=== PATIENT | female | born 1975 | race Caucasian/White ===

== ENCOUNTER 2018-04-28 11:44 | Outpatient (CLI) | payer BC | END 2018-04-28 11:45 | disposition home or self-care (01) | LOC: BICMAMMO 11:44 | PROVIDERS: ATTEND Student in an Organized Health Care Education/Training Program | DX: Z12.31 Encounter for screening mammogram for malignant neoplasm of breast (principal) | CPT/HCPCS: 77063; 77067 ==

== ENCOUNTER 2019-06-15 08:11 | Outpatient (CLI) | payer BC ==
--- NOTE | 2019-06-15 09:49 | MRI ---
CERVICAL SPINE MRI WITHOUT CONTRAST: DATE: 06/15/2019. COMPARISON: None. HISTORY: Cervical radiculopathy. TECHNIQUE: Multiplanar multisequence MR imaging of the cervical spine obtained without contrast. FINDINGS: The sagittal STIR imaging demonstrates no focal area of osseous marrow edema. There is straightening of the normal cervical lordosis. No prevertebral soft tissue swelling is noted . C2-3: No significant central canal or neural foraminal stenosis. C3-4: No significant central canal or neural foraminal stenosis. C4-5: Disc space narrowing and disc desiccation noted. There is a central/left paracentral annular te ar with an associated small disc protrusion effacing the ventral thecal sac and causing a mild degree of central canal stenosis. No significant neural foraminal stenosis. C5-6: Bilateral facet and uncovertebral osteophyte formation, left greater than right. Disc space onel rowing and disc desiccation present. Partial effacement of the ventral thecal sac. Mild central canal stenosis. Mild right and moderate left neural foraminal stenosis. C6-7: There is disc space narrowing, disc desiccation, and disc bulge with an extensive posterior kwabena ular tear. There is partial effacement of the ventral thecal sac with a mild degree of central canal stenosis. No significant neural foraminal stenosis. C7-T1: No significant central canal or neural foraminal stenosis. There is no focal area of abnormal signal intensity identified within the cervical cord. IMPRESSION: Multilevel cervical spine degenerative change as detailed above. Transcribed Date/Time: 06/15/2019 10:04 AM
== END 2019-06-15 08:12 | disposition home or self-care (01) ==
LOC: SCSMRI 08:11
PROVIDERS: ATTEND Specialist
DX: M47.22 Other spondylosis with radiculopathy, cervical region (principal)
CPT/HCPCS: 72141

== ENCOUNTER 2019-07-19 07:49 | Outpatient (CLI) | payer BC ==
--- NOTE | 2019-07-19 09:41 | MRI ---
MRI BRACHIAL PLEXUS WITH AND WITHOUT CONTRAST: CLINICAL HISTORY: Cervical pain. FINDINGS: No evidence of space occupying mass or pathologic enhancement is identified along the course of the l eft brachial plexus. Incidental note of degenerative change as depicted on 06/15/2019 cervical spine MRI. No abnormal left neural foraminal expansion of the imaged cervical and upper thoracic spin e. IMPRESSION: No acute pathology of the left brachial plexus is identified. Transcribed Date/Time: 07/19/2019 9:44 AM
--- NOTE | 2019-07-19 11:26 | RAD ---
CERVICAL SPINE FOUR VIEWS: HISTORY: Neck pain. FINDINGS: There is straightening of the normal lordotic curvature. Moderate degenerative changes are noted. Los s of disk space is prominent at C5-C6 and C6-C7. Anterior osteophytes at these levels with mild poste rior spondylosis. Slight anterolisthesis at C3-C4. No significant change in alignment with flexion an d extension. IMPRESSION: Mild degenerative changes as described. POS: [facility]
== END 2019-07-19 07:50 | disposition home or self-care (01) ==
LOC: BICMRI 07:49
PROVIDERS: ATTEND Surgery
DX: M50.20 Other cervical disc displacement, unspecified cervical region (principal); M79.602 Pain in left arm; M47.812 Spondylosis without myelopathy or radiculopathy, cervical region; M43.12 Spondylolisthesis, cervical region; M25.78 Osteophyte, vertebrae
CPT/HCPCS: 36415; 72050; 72156; 80053; 80061; 85025

== ENCOUNTER 2019-09-07 11:55 | Day surgery (SDC) | payer BC ==
[2019-09-06 11:35] VITALS: BMI 27.3
[2019-09-07] MEDS ORDERED: PROPOFOL 200 MG/20 ML VIAL ONE (12:50)
[2019-09-07] MEDS ORDERED: Lidocaine 1% PF 5 ML VIAL ONE (12:50)
--- NOTE | 2019-09-07 15:27 | OP ---
DATE OF PROCEDURE: 09/07/2019 PROCEDURE PERFORMED: Colonoscopy with biopsy. PREPROCEDURE DIAGNOSES: 1. Hematochezia. 2. Chronic constipation. POSTPROCEDURE DIAGNOSES: 1. Exam to cecum; good bowel preparation. 2. Diffusely redundant colon, mild severity. 3. 3 to 4 cm distal rectal mass located at the anal verge extending proximally to the [id number] rectum, biopsied. 4. No other polyps or synchronous masses identified. 5. Retroflexed exam not performed due to the presence of the rectal mass. DESCRIPTION OF PROCEDURE: Written informed consent was obtained. The patient was brought to the endoscopy suite. Total intravenous anesthesia was administered by Dr. Ridge Oliva. The patient was placed in the left lateral decubitus position. A digital rectal exam was performed which revealed the tender rectal mass. A Pentax video colonoscope was inserted through the anal canal and advanced under direct visualization to the cecum. Position in the cecum was verified by clear identification of the appendiceal orifice and the ileocecal valve. The quality of the bowel preparation was good. Each colon segment was examined carefully as the colonoscope was slowly withdrawn from the cecum. No polyp or diverticulum was identified. There was mild redundancy to the entire colon. In the rectum, approximately 4 cm from the anal verge, an exophytic friable ulcerated mass occupying about 50% of the luminal circumference was identified in the distal rectum. Multiple biopsies were obtained for histology. Due to the presence of the mass, a good retroflexed exam could not be performed. The colon was decompressed as the colonoscope was completely removed from the patient. She was transferred to the Day Stay surgery area for postprocedure monitoring. There were no immediate complications. RECOMMENDATIONS: 1. Await pathology results. 2. Ask the patient to call me in 1 week for pathology results. 3. Obtain CBC, CMP, and CEA today. 4. Obtain CT scan of the abdomen and pelvis. 5. Obtain rectal endoscopic ultrasound, to be scheduled at a later date. 6. Referral to Oncology. 7. Follow up with me in 1 month. Job ID: [id number]
[2019-09-07 15:58] LABS: ALT (SGPT) 10 U/L (8-55); AST (SGOT) 13 U/L (5-34); Albumin 3.9 g/dL (3.5-5.0); Alkaline Phosphatase 78 U/L (40-110); Anion Gap 14 mmol/L (10-20); BUN (Urea Nitrogen) 9 mg/dL (7.0-18.7); Bilirubin, Total 0.6 mg/dL (0.2-1.2); Calc. Creatinine Clearance 118 mL/min (70-130); Calcium 8.9 mg/dL (7.8-10.44); Carbon Dioxide 20 mmol/L (22-29); Chloride 106 mmol/L (98-107); Estimated GFR-MDRD 83; Globulin 2.4 g/dL (2.4-3.5); Glucose 85 mg/dL (70-105); Potassium 3.7 mmol/L (3.5-5.1); Protein, Total 6.3 g/dL (6.0-8.3); Sodium 136 mmol/L (136-145)
== END 2019-09-07 15:50 | disposition home or self-care (01) ==
LOC: SDC 11:55
PROVIDERS: ATTEND Internal Medicine Gastroenterology
PROC: 0DBP8ZX Excision of Rectum, Via Natural or Artificial Opening Endoscopic, Diagnostic (ICD-10-PCS; principal; 2019-09-07)
DX: C20 Malignant neoplasm of rectum (principal); K59.09 Other constipation
CPT/HCPCS: 36415; 80053; 82378; 88305; J2001; J2704

== ENCOUNTER 2019-09-12 07:21 | Outpatient (CLI) | payer BC ==
--- NOTE | 2019-09-12 10:48 | CT ---
CT ABDOMEN AND PELVIS WITH ORAL AND IV CONTRAST: HISTORY: Squamous cell carcinoma of the anal canal. FINDINGS: There are mild dependent changes in the lung bases. The liver, spleen, pancreas, adrenal glands and k idneys are normal. No calcified gallstones are noted. No free air or free fluid is seen in the abdome n or pelvis. There are enlarged right perirectal lymph nodes, measuring up to 2 cm. No osteolytic or osteoblastic lesions are seen. A small hiatal hernia is present. There are vascular calcifications without evidence of dilatation of the abdominal aorta. There is thickening of the wall of the rectum. IMPRESSION: Rectal wall thickening and right perirectal lymphadenopathy. POS: [facility]
[2019-09-12] MEDS ORDERED: Iopamidol 370 76% 50 ML VIAL FS ONE (13:34)
== END 2019-09-12 07:22 | disposition home or self-care (01) ==
LOC: CT 07:21
PROVIDERS: ATTEND Internal Medicine Gastroenterology
DX: C21.0 Malignant neoplasm of anus, unspecified (principal); K62.89 Other specified diseases of anus and rectum; R59.0 Localized enlarged lymph nodes
CPT/HCPCS: 74177; Q9967

== ENCOUNTER 2019-09-21 10:46 | Outpatient (CLI) | payer BC ==
--- NOTE | 2019-09-21 13:29 | PET ---
PET CT SKULL TO MID THIGH: COMPARISON: CT 09/12/2019. HISTORY: Anal cancer. TECHNIQUE: A PET/CT was performed from the skull to the mid thigh after administration of 12.5 millicuries of F- 18 FDG. Evaluation was performed on a [employer] workstation. FINDINGS: NECK: No areas of hypermetabolic activity. CHEST: No areas of hypermetabolic activity. ABDOMEN/PELVIS: Previously noted perirectal lymph nodes of the right hemipelvis are hypermetabolic, with SUV up to 9. 8, and measure up to approximately 2 cm in diameter. There is also abnormal hypermetabolic activity near the anorectal verge, with SUV maximum greater than 11. SKELETON: No areas of hypermetabolic activity. CT images used for attenuation correction show no significant abnormality. IMPRESSION: Evidence of malignancy involving the region of anorectal verge, in keeping with history of anal cance r, as well as adjacent metastatic, hypermetabolic adenopathy of the pelvis. Transcribed Date/Time: 09/21/2019 1:41 PM
== END 2019-09-21 10:47 | disposition home or self-care (01) ==
LOC: PET 10:46
PROVIDERS: ATTEND Radiology Radiation Oncology
DX: C21.0 Malignant neoplasm of anus, unspecified (principal); C21.8 Malignant neoplasm of overlapping sites of rectum, anus and anal canal
CPT/HCPCS: 78815; 80053; 82248; 83615; 84100; 84550; A9552

== ENCOUNTER 2019-09-25 07:02 | Day surgery (SDC) | payer BC ==
[2019-09-22 10:40] VITALS: BMI 28.1
[2019-09-25] MEDS ORDERED: Bupivacaine 0.25% HCL 30 ML VIAL ONE (07:55)
[2019-09-25] MEDS ORDERED: Lidocaine 1% w/Epinephrine 1:100K 20 ML VIAL ONE (07:55)
[2019-09-25 08:14] LABS: Anion Gap 11 mmol/L (10-20); BUN (Urea Nitrogen) 12 mg/dL (7.0-18.7); Calc. Creatinine Clearance 111 mL/min (70-130); Carbon Dioxide 26 mmol/L (22-29); Chloride 106 mmol/L (98-107); Estimated GFR-MDRD 75; Glucose 84 mg/dL (70-105); Potassium 4.2 mmol/L (3.5-5.1); Sodium 139 mmol/L (136-145)
[2019-09-25] MEDS ORDERED: Lidocaine 2% Jelly 5 ML TUBE ONE (09:01)
[2019-09-25] MEDS ORDERED: Fentanyl 100 MCG/2 ML VIAL ONE (09:01)
[2019-09-25] MEDS ORDERED: Propofol 500 MG/50 ML VIAL ONE (09:02)
--- NOTE | 2019-09-25 10:31 | RAD ---
EXAM: Single view of the chest HISTORY: Mediport placement COMPARISON: None FINDINGS: Single view of the chest shows a normal sized cardiomediastinal silhouette. There is a rig ht IJ Mediport with its tip in the superior vena cava. No pneumothorax is seen. There is no evidence of consolidation, mass, or pleural effusion. The bones are unremarkable. IMPRESSION: Status post Mediport placement without evidence of complication.
[2019-09-25] MEDS ORDERED: Ondansetron ODT 4 MG TAB ONE (11:05)
--- NOTE | 2019-09-25 12:14 | OP ---
DATE OF PROCEDURE: 09/25/2019 PREOPERATIVE DIAGNOSIS: Anal squamous cell carcinoma. POSTOPERATIVE DIAGNOSIS: Anal squamous cell carcinoma. PROCEDURE PERFORMED: Tunneled central line subcutaneous port (MediPort CT injectable). ANESTHESIA: General. ESTIMATED BLOOD LOSS: Minimal. COMPLICATIONS: None. SPECIMEN: None. FINDINGS: Tip of the catheter was at atriocaval junction. DESCRIPTION OF PROCEDURE: The patient was taken to the operating room and laid supine on the operating room table. After general anesthetic was obtained, bilateral chest and neck was prepped and draped in a sterile fashion. Local anesthetic infiltrated over the left internal jugular vein. Internal jugular vein was cannulated using a 22-gauge finder needle followed by a Seldinger needle. Wire was passed into the superior vena cava under fluoro guidance. A small maryse was made at the wire entrance site. A separate 4 cm incision was made in the right upper chest. Subcutaneous pocket was made below the lower incision, tubing for the MediPort tunneled from the inferior to superior incision. Introducer sheath was placed over the wire into the superior vena cava under fluoro guidance. The dilator and wire were removed. The end of the catheter was sewed into the sheath. The sheath was peeled away. The tip of the catheter was at the atriocaval junction. MediPort tubing cut to fit the MediPort at the lower incision, connected to the MediPort, which was sewn to the chest wall in the subcutaneous pocket using Prolene. MediPort was flushed and corinna blood without difficulty. It was flushed with a heparin flush. The wounds were all irrigated and closed using 3-0 Vicryl and 4-0 Monocryl, and Dermabond. Patient was sent to Recovery in stable condition. All sponge counts, needle counts, lap counts were correct. Job ID: [id number]
== END 2019-09-25 11:15 | disposition home or self-care (01) ==
LOC: SDC 07:02
PROVIDERS: ATTEND Surgery
PROC: 02HV33Z Insertion of Infusion Device into Superior Vena Cava, Percutaneous Approach (ICD-10-PCS; principal; 2019-09-25)
DX: C21.0 Malignant neoplasm of anus, unspecified (principal)
CPT/HCPCS: 36415; 71045; 80048; J0690; J1642; J2704; J3010; Q0162; S0020

== ENCOUNTER 2019-10-10 20:24 | Emergency (ER) | payer BC | END 2019-10-10 21:32 | disposition left against medical advice (07) | LOC: ERS 20:24 | DX: Z53.21 Procedure and treatment not carried out due to patient leaving prior to being seen by health care provider (principal) ==

== ENCOUNTER 2019-10-11 13:10 | Emergency (ER) | payer BC ==
[2019-10-11 14:25] LABS: #Basophils 0.1 thou/uL (0.0-0.2); #Lymphocytes 0.1 thou/uL (1.20-3.40); #Monocytes 0.1 thou/uL (0.11-0.59); %Basophils 1.9 % (0.0-1.0); %Eosinophils 0.4 % (0.0-10.0); %Lymphocytes 2.9 % (21.0-51.0); %Monocytes 3.1 % (0.0-10.0); %Neutrophils 91.7 % (42.0-75.0); Hemoglobin 12.4 g/dL (12.0-16.0); Mean Corpuscular HGB CONC 34.7 g/dL (32.0-36.0); Mean Corpuscular Hemoglobin 31.5 pg (27.0-31.0); Mean Corpuscular Volume 90.6 fL (78.0-98.0); Mean Platelet Volume 8.7 fL (7.4-10.4); Platelet Count 186 thou/uL (130-400); RBC Distribution Width 11.3 % (11.5-14.5); Red Blood Cell (RBC) Count 3.93 mill/uL (4.20-5.40); White Blood Cell (WBC) Count 4.4 thou/uL (4.8-10.8)
[2019-10-11 14:31] LABS: PTT 25.7 SEC (22.9-36.1); Prothrombin Time 13.3 SEC (12.0-14.7)
[2019-10-11 14:47] LABS: ALT (SGPT) 9 U/L (8-55); AST (SGOT) 7 U/L (5-34); Albumin 3.8 g/dL (3.5-5.0); Alkaline Phosphatase 55 U/L (40-110); Anion Gap 14 mmol/L (10-20); BUN (Urea Nitrogen) 15 mg/dL (7.0-18.7); Bilirubin, Total 0.4 mg/dL (0.2-1.2); Calc. Creatinine Clearance 0 mL/min (70-130); Calcium 8.4 mg/dL (7.8-10.44); Carbon Dioxide 19 mmol/L (22-29); Chloride 103 mmol/L (98-107); Estimated GFR-MDRD 77; Globulin 2.4 g/dL (2.4-3.5); Glucose 202 mg/dL (70-105); Potassium 3.6 mmol/L (3.5-5.1); Protein, Total 6.2 g/dL (6.0-8.3); Sodium 132 mmol/L (136-145)
[2019-10-11 14:58] LABS: Bilirubin Negative (Negative); Blood, Urine Negative (Negative); Clarity Clear (Clear); Glucose, Urine (Dipstick) Greater than 1000 mg/dL (Negative); Leukocyte Negative Leu/uL (Negative); Nitrite Negative (Negative); Protein, Urine (Dipstick) 10 mg/dL (Neg-Trace); Urobilinogen Normal mg/dL (Less than 2)
--- NOTE | 2019-10-11 17:05 | ULT ---
Venous duplex sonogram right upper extremity HISTORY: Right arm pain and edema. FINDINGS: Thrombus is evident within the right internal jugular vein. No flow visible. Good color and spectral Doppler flow within the subclavian vein, axillary, brachial, basilic, and cephalic veins. 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
== END 2019-10-11 18:07 | disposition home or self-care (01) ==
LOC: ERS 13:10
DX: I82.C11 Acute embolism and thrombosis of right internal jugular vein (principal); Z79.899 Other long term (current) drug therapy
CPT/HCPCS: 36415; 80053; 81003; 85025; 85610; 85730

== ENCOUNTER 2019-12-26 19:11 | Emergency (ER) | payer BC ==
[~2019-12-26 19:11] MED LIST: Iopamidol-370 76% 500 ML 1 ML ONE
[2019-12-26] MEDS ORDERED: Mag-Al 1200 mg/1200 mg/30 ML UDCUP ONE (19:26)
[2019-12-26] MEDS ORDERED: Lidocaine Viscous Sol 2% 15 ml UD Cup ONE (19:26)
[2019-12-26 19:57] LABS: #Eosinphils 0.3 thou/uL (0.0-0.7); #Lymphocytes 0.7 thou/uL (1.20-3.40); #Monocytes 0.6 thou/uL (0.11-0.59); #Neutrophils 3.3 thou/uL (1.40-6.50); %Basophils 0.7 % (0.0-1.0); %Eosinophils 6.4 % (0.0-10.0); %Lymphocytes 13.7 % (21.0-51.0); %Monocytes 11.4 % (0.0-10.0); %Neutrophils 67.8 % (42.0-75.0); Hemoglobin 11.1 g/dL (12.0-16.0); Mean Corpuscular HGB CONC 35.5 g/dL (32.0-36.0); Mean Corpuscular Volume 95.8 fL (78.0-98.0); Mean Platelet Volume 7.7 fL (7.4-10.4); Platelet Count 209 thou/uL (130-400); RBC Distribution Width 14.4 % (11.5-14.5); Red Blood Cell (RBC) Count 3.27 mill/uL (4.20-5.40); White Blood Cell (WBC) Count 4.8 thou/uL (4.8-10.8)
[2019-12-26 20:18] LABS: Bacteria/HPF None Seen HPF (None Seen); Bilirubin Negative (Negative); Blood, Urine Negative (Negative); Clarity Clear (Clear); Glucose, Urine (Dipstick) Normal (Negative); Leukocyte 75 Leu/uL (Negative); Nitrite Negative (Negative); Protein, Urine (Dipstick) Negative (Neg-Trace); RBC/HPF 0-3 HPF (0-3); Squamous Epithelial 0-3 HPF (0-3); Urobilinogen Normal mg/dL (Less than 2)
[2019-12-26 20:28] LABS: ALT (SGPT) 34 U/L (8-55); AST (SGOT) 34 U/L (5-34); Albumin 3.9 g/dL (3.5-5.0); Alkaline Phosphatase 89 U/L (40-110); Anion Gap 15 mmol/L (10-20); BUN (Urea Nitrogen) 12 mg/dL (7.0-18.7); Bilirubin, Total 0.3 mg/dL (0.2-1.2); Calc. Creatinine Clearance 0 mL/min (70-130); Carbon Dioxide 23 mmol/L (22-29); Chloride 106 mmol/L (98-107); Estimated GFR-MDRD 73; Globulin 2.2 g/dL (2.4-3.5); Glucose 99 mg/dL (70-105); Lipase 29 U/L (8-78); Potassium 3.8 mmol/L (3.5-5.1); Protein, Total 6.1 g/dL (6.0-8.3); Sodium 140 mmol/L (136-145)
[2019-12-26] MEDS ORDERED: Morphine 4 MG/ML VIAL ONE (20:47)
[2019-12-26] MEDS ORDERED: Ondansetron PF 4 MG/2 ML Vial ONE (20:47)
[2019-12-26 21:14] LABS: BHCG - Serum Negative (NEGATIVE); Pregs Control Background? CLEAR/WHITE (CLR/WHITE); Pregs Control Bar Appear? YES (CONTROL BAR)
--- NOTE | 2019-12-26 21:42 | CT ---
CT ABDOMEN WITH CONTRAST CT PELVIS WITH CONTRAST: DATE: 12/26/2019 HISTORY: 44-year-old female with epigastric abdominal pain. History of anal cancer: Squamous cell carcinoma in remission after last chemotherapy and radiation therapy one month ago COMPARISON: 09/12/2019 TECHNIQUE: IV injection of iodinated contrast media: administered. Oral contrast media:Not administered FINDINGS: At the base of the right middle lobe, abutting the right cardiac border and the right anterior old me dial pleural surface, there is an approximately 4 x 3.5 cm lesion with density of 18 Hounsfield units. The craniocaudal dimension is unknown because only the most inferior portion of this mass was included on the images. This mass was previously approximately 3 x 2.5 cm. No pleural effusion. No moderate sized or large hiatal hernia. No gastric distention. Liver, kidneys, abdominal aorta, adrenals, pancreas, spleen, appendix, and urinary bladder, are quyen l. No colonic diverticulitis, small bowel dilation, or pneumoperitoneum. No mesenteric, minerva hepatis, o r retroperitoneal, lymphadenopathy. No signs of acute cholecystitis. Previously, there were pathologically enlarged right perirectal lymph nodes (which were FDG avid on s ubsequent PET scan). Those lymph nodes are no longer visualized, and have been replaced with either a small amount of bilateral perirectal fluid in the ischio rectal fossa, right greater than left, or scar tissue. No osteoblastic or osteolytic lesions. The previously demonstrated diffuse soft tissue thickening of the perineum, including anorectal verge, has improved. IMPRESSION: 1. Post radiation changes in the perirectal, ischio rectal fossa region, especially on the right, wit h interval resolution of the right perirectal metastatic lymph nodes. 2. Slightly high density cystic mass in the right middle lobe of the chest, (probably arising from th e paracardial fat pad rather than arising from the lung) has grown. It is incompletely imaged, and its etiology is uncertain. Recommend CT of the chest with contrast on a nonemergent basis. 3. No acute findings within the upper abdominal cavity.
== END 2019-12-26 21:59 | disposition home or self-care (01) ==
LOC: ERS 19:11
DX: R10.12 Left upper quadrant pain (principal); Z79.01 Long term (current) use of anticoagulants; Z85.048 Personal history of other malignant neoplasm of rectum, rectosigmoid junction, and anus
CPT/HCPCS: 36415; 74177; 80053; 81003; 81015; 83690; 84484; 84703; 85025; 93005; 96374; 96375; J2270; J2405

== ENCOUNTER 2020-01-02 09:54 | Outpatient (CLI) | payer BC ==
--- NOTE | 2020-01-02 12:05 | PET ---
Radionucleotide PET scan with CT attenuation correction HISTORY: Malignant neoplasm of anal canal. Restaging. COMPARISON: 09/12/2019. FINDINGS: Physiologic uptake of radiotracer throughout the enteric system and along each urinary trac t. At the lower posterior pelvis rectum/anus, no hypermetabolic activity is apparent on the current study. No new areas of abnormal activity evident. The nondiagnostic CT attenuation correction images show no enlarged lymph nodes remaining (as describ ed on the CT 12/26/2019). The non-hypermetabolic cystic lesion adjacent to the right cardiac margin at the anterior cardiophren ic angle remains homogeneous fluid density. On today's exam axial images, it is 3.7 cm x 3.1 cm greatest diameters (4.3 cm x 4.2 cm on the 12/26/2019 study; 2.9 cm x 2.5 cm PET/CT 09/12/2019). Since it is smaller than on the prior study, it is certainly not a neoplastic process. Cause for fluctuation in size is not uncertain. IMPRESSION : Complete interval resolution of hypermetabolic activity associated with the rectum/anus. Resolution o f activity and visualization of the right perirectal nodes. No new abnormalities are demonstrated.
== END 2020-01-02 09:55 | disposition home or self-care (01) ==
LOC: PET 09:54
PROVIDERS: ATTEND Internal Medicine Hematology & Oncology
DX: C21.1 Malignant neoplasm of anal canal (principal)
CPT/HCPCS: 78815; A9552

== ENCOUNTER 2020-03-18 05:51 | Outpatient (CLI) | payer BC, OTHER ==
[2020-03-19 13:46] LABS: SARS-CoV-2 MS2 Positive; SARS-CoV-2 N Gene Negative; SARS-CoV-2 S Gene Negative; SARS-CoV-2 orf1ab Negative
== END 2020-03-18 05:52 | disposition home or self-care (01) ==
LOC: LABBT 05:51
PROVIDERS: ATTEND Internal Medicine Gastroenterology
DX: Z01.812 Encounter for preprocedural laboratory examination (principal); Z11.59 Encounter for screening for other viral diseases; C21.8 Malignant neoplasm of overlapping sites of rectum, anus and anal canal
CPT/HCPCS: 87635; U0003

== ENCOUNTER 2020-03-21 10:21 | Day surgery (SDC) | payer BC ==
[2020-03-15 10:33] VITALS: BMI 28.1
[~2020-03-21 10:21] MED LIST changes: -Iopamidol-370 76% 500 ML 1 ML ONE; +Lidocaine 1% PF 5 ML VIAL ONE; +PROPOFOL 200 MG/20 ML VIAL ONE
[2020-03-21] MEDS ORDERED: Fleet Enema 133 ML BOT FS SCH (11:45)
--- NOTE | 2020-03-21 18:56 | OP ---
DATE OF PROCEDURE: 03/21/2020 PROCEDURE PERFORMED: Flexible sigmoidoscopy. 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 POSTPROCEDURE DIAGNOSES: 1. Exam to proximal sigmoid colon at 40 cm. 2. Moderate mucosal edema involving the distal sigmoid colon and rectum consistent with the patient's previous history of radiation therapy. 3. Attenuated vascular pattern in the rectum. 4. No evidence of ulcer, polyp, or recurrence of anal mass. 5. Retroflexed exam demonstrated small anal papilla. 6. Otherwise normal sigmoidoscopy. PROCEDURE IN DETAIL: Written informed consent was obtained. The patient was brought to the endoscopy suite. Total intravenous anesthesia was administered by [facility]. The patient was placed in the left lateral decubitus position. A digital rectal exam was performed that was unremarkable. A Pentax video colonoscope was inserted through the anal canal and advanced under direct visualization to the proximal sigmoid colon at 40 cm. Quality of the bowel preparation was adequate. The colon was carefully examined as the sigmoidoscope was withdrawn. Moderate circumferential mucosal edema was noted in the distal sigmoid and rectum. The vascular pattern of the rectum was attenuated, consistent with the patient's recent history of chemoradiation. The mucosa was friable, but no ulcers were identified. There was no evidence of polyp on the exam. A retroflexed exam in the rectum demonstrated a few hypertrophied anal papilla, but was otherwise unremarkable. No anal mass was seen. The colon and rectum were decompressed as the colonoscope was completely removed from the patient. She was transferred to the Day Stay surgery area for postprocedure monitoring. There were no immediate complications. RECOMMENDATIONS: 1. Resume previous diet and medications. 2. Continue regular followup with Oncology. 3. Repeat sigmoidoscopy in 1 year or as guided by recommendations from Dr. Faith. Job ID: [id number]
== END 2020-03-21 13:45 | disposition home or self-care (01) ==
LOC: SDC 10:21
PROVIDERS: ATTEND Internal Medicine Gastroenterology
PROC: 0DJD8ZZ Inspection of Lower Intestinal Tract, Via Natural or Artificial Opening Endoscopic (ICD-10-PCS; principal; 2020-03-21)
DX: C21.8 Malignant neoplasm of overlapping sites of rectum, anus and anal canal (principal); K62.89 Other specified diseases of anus and rectum; R60.0 Localized edema; Z79.899 Other long term (current) drug therapy
CPT/HCPCS: J2001; J2704

== ENCOUNTER 2020-05-28 14:30 | Outpatient (CLI) | payer BC ==
--- NOTE | 2020-05-28 15:13 | MMO ---
Left Breast MAMMO Unilat Diag DDI LT+TINY. CLINICAL HISTORY: Patient is 44 years old and is seen for diagnostic exam. The patient has no family history of breast cancer. The patient has no personal history of cancer. The patient has a history of right Cyst Aspiration in 2007. VIEWS: The views performed were: left craniocaudal with tomosynthesis; left mediolateral oblique with tomosynthesis; and left mediolateral with tomosynthesis. FILMS COMPARED: The present examination has been compared to prior imaging studies performed at [facility] on 05/25/2020, and at [facility] on 04/28/2018, 05/22/2019 and 05/28/2020. This study has been interpreted with the assistance of computer-aided detection. MAMMOGRAM FINDINGS: The breast is extremely dense, which may lower the sensitivity of mammography. Finding 1: There is a round mass measuring 40 mm with circumscribed margins seen in the left breast. Cyst palpable finding Finding 2: There are multiple round masses of varying size with circumscribed margins seen in the left breast. There are no suspicious masses, suspicious calcifications, or new areas of architectural distortion. IMPRESSION: THERE IS NO MAMMOGRAPHIC EVIDENCE OF MALIGNANCY. A ROUTINE FOLLOW-UP MAMMOGRAM IN 1 YEAR IS RECOMMENDED. THE RESULTS OF THIS EXAM WERE SENT TO THE PATIENT. ACR BI-RADS Category 2 - Benign finding MAMMOGRAPHY NOTE: 1. A negative mammogram report should not delay a biopsy if a dominant of clinically suspicious mass is present. 2. Approximately 10% to 15% of breast cancers are not detected by mammography. 3. Adenosis and dense breasts may obscure an underlying neoplasm. Reported by: SHANTEL FONTANA MD Electonically Signed: [id number]
--- NOTE | 2020-05-28 15:40 | ULT ---
EXAM: LEFT BREAST ULTRASOUND: 05/28/20 HISTORY: Patient presents with a palpable finding in the left breast on diagnostic mammogram for further evalu ation with ultrasound. The left breast is evaluated at 3 o'clock revealing a large cyst measuring 3.2 x 3.4 x 3.6 cm corresp onding to the palpable finding. IMPRESSION: BIRADS 2: Benign Finding(s) Routine annual screening mammography (for women over age 40). Large benign cyst left breast 3 o'clock corresponding to the palpable finding and the mammographic fi nding of concern. POS: [facility]
== END 2020-05-28 14:31 | disposition home or self-care (01) ==
LOC: BICMAMMO 14:30
PROVIDERS: ATTEND Student in an Organized Health Care Education/Training Program
DX: N63.20 Unspecified lump in the left breast, unspecified quadrant (principal); N60.02 Solitary cyst of left breast
CPT/HCPCS: G0279

== ENCOUNTER 2020-05-28 21:45 | Emergency (ER) | payer BC ==
[2020-05-28] MEDS ORDERED: HYDROcodone/Acetaminophen 10/325 mg Tablet ONE (22:15)
--- NOTE | 2020-05-28 22:19 | RAD ---
Exam:3 views left ankle HISTORY: Pain. Fall. Trauma. COMPARISON: None FINDINGS: Lateral soft tissue swelling. Nondisplaced distal fibular fracture. IMPRESSION: Distal fibular fracture. Associated soft tissue swelling
== END 2020-05-28 22:35 | disposition home or self-care (01) ==
LOC: ERS 21:45
DX: S82.832A Other fracture of upper and lower end of left fibula, initial encounter for closed fracture (principal); Z79.899 Other long term (current) drug therapy; X50.0XXA Overexertion from strenuous movement or load, initial encounter

== ENCOUNTER 2020-08-08 06:49 | Outpatient (CLI) | payer BC ==
[2020-08-08 13:59] LABS: Hemoglobin 14.1 g/dL (12.0-16.0); Mean Corpuscular HGB CONC 34.3 G/DL (32.0-36.0); Mean Corpuscular Hemoglobin 31.9 PG (27.0-33.0); Platelet Count 265 10x3/uL (130-400); RBC Distribution Width 13.2 % (11.5-14.5); Red Blood Cell (RBC) Count 4.42 10x6/uL (3.90-5.20); White Blood Cell (WBC) Count 4.9 10x3/uL (4.5-11.0)
[2020-08-08 14:13] LABS: PTT 27.2 sec (22.0-33.0); Prothrombin Time 10.1 sec (9.5-12.1)
[2020-08-08 14:21] LABS: Anion Gap 15 mmol/L (10-20); BUN (Urea Nitrogen) 17 mg/dL (7.0-18.7); Calc. Creatinine Clearance 0 mL/min (70-130); Calcium 9.8 mg/dL (7.8-10.44); Carbon Dioxide 26 mmol/L (22-29); Chloride 103 mmol/L (98-107); Estimated GFR-MDRD 69; Glucose 99 mg/dL (70-105); Potassium 4.2 mmol/L (3.5-5.1); Sodium 140 mmol/L (136-145)
[2020-08-08 22:58] LABS: SARS-CoV-2 MS2 Positive; SARS-CoV-2 N Gene Negative; SARS-CoV-2 S Gene Negative; SARS-CoV-2 by NAA Not Detected (NotDetected); SARS-CoV-2 orf1ab Negative
--- NOTE | 2020-08-13 06:55 | EKG ---
Test Reason : PREOP Blood Pressure : / mmHG Vent. Rate : 091 BPM Atrial Rate : 091 BPM P-R Int : 144 ms QRS Dur : 090 ms QT Int : 380 ms P-R-T Axes : 057 093 065 degrees QTc Int : 467 ms Normal sinus rhythm Rightward axis Borderline ECG No previous ECGs available Confirmed by TIM GOTTLIEB, JULIAN ([id number]) on 08/13/2020 6:54:31 AM Referred By: Vivek RUBIN Confirmed By:JULIAN DUMONT MD
== END 2020-08-08 06:50 | disposition home or self-care (01) ==
LOC: LABBT 06:49
PROVIDERS: ATTEND Surgery
DX: Z01.818 Encounter for other preprocedural examination (principal); M50.10 Cervical disc disorder with radiculopathy, unspecified cervical region; M48.02 Spinal stenosis, cervical region; Z20.828 Contact with and (suspected) exposure to other viral communicable diseases
CPT/HCPCS: 80048; 85027; 85610; 85730; 87635; 93005; 93010; U0003

== ENCOUNTER 2020-08-13 05:48 | Day surgery (SDC) | payer BC ==
[2020-08-12 10:19] VITALS: BMI 27.3
[2020-08-13] MEDS ORDERED: Fentanyl 100 MCG/2 ML VIAL ONE ×4 (06:30→15:49)
[2020-08-13] MEDS ORDERED: Thrombin 5000 UNITS/5 ML VIAL ONE (06:31)
[2020-08-13] MEDS ORDERED: Midazolam HCl 2 mg/2 ml Vial ONE (07:27)
[2020-08-13] MEDS ORDERED: HYDROmorphone 2 MG/ML VIAL ONE ×2 (08:06→10:43)
[2020-08-13] MEDS ORDERED: SUGAMMADEX SODIUM 200 MG/2 ML VIAL ONE (09:18)
[2020-08-13] MEDS ORDERED: Dexamethasone 20 MG/5 ML VIAL ONE (09:27)
[2020-08-13] MEDS ORDERED: Ondansetron PF 4 MG/2 ML Vial ONE (09:27)
[2020-08-13] MEDS ORDERED: Lidocaine 1% PF 5 ML VIAL ONE (09:27)
[2020-08-13] MEDS ORDERED: PROPOFOL 200 MG/20 ML VIAL ONE (09:27)
[2020-08-13] MEDS ORDERED: Ketorolac Tromethamine 30 MG/ML VIAL ONE (09:27)
[2020-08-13] MEDS ORDERED: Rocuronium Bromide 10 MG/ML (10ML VIAL) ONE (09:27)
[2020-08-13] MEDS ORDERED: Ondansetron HCl/PF 4 MG/2 ML Vial IVP PRN (09:40)
[2020-08-13] MEDS ORDERED: Meperidine HCl/PF 25 MG/ML VIAL SLOW IVP PRN (09:40)
[2020-08-13] MEDS ORDERED: Promethazine HCl 25 MG/ML VIAL SLOW IVP PRN (09:40)
[2020-08-13] MEDS ORDERED: HYDROmorphone 2 MG/ML VIAL SLOW IVP PRN (09:40)
[2020-08-13] MEDS ORDERED: Milk Of Magnesia 30 ML UDCUP PO PRN (09:46)
[2020-08-13] MEDS ORDERED: traMADol HCl 50 MG TAB PO PRN (09:46)
[2020-08-13] MEDS ORDERED: Acetaminophen 325 MG TAB PO PRN (09:46)
[2020-08-13] MEDS ORDERED: Mag-Al 1200 mg/1200 mg/30 ML UDCUP PO PRN (09:46)
[2020-08-13] MEDS ORDERED: Bisacodyl 10 MG SUPP PR PRN (09:46)
[2020-08-13] MEDS ORDERED: HYDROcodone/Acetaminophen 7.5/325 mg Tablet PO PRN (09:46)
[2020-08-13] MEDS ORDERED: Acetaminophen/Codeine 30-300mg Tablet PO PRN (09:46)
[2020-08-13] MEDS ORDERED: ALPRAZolam 0.5 MG TAB PO PRN (09:47)
[2020-08-13] MEDS ORDERED: tiZANidine HCl 4 MG TAB ONE (12:21)
[2020-08-13] MEDS: tiZANidine HCl 4 MG TAB PO PRN (12:23)
[2020-08-13] MEDS: CEFAZOLIN 2 GM in Premix Bag 1 BAG IVPB SCH (15:48)
[2020-08-13] MEDS: Morphine 2 MG/ML VIAL SLOW IVP PRN ×2 (17:35→20:34)
[2020-08-13] MEDS: Ondansetron PF 4 MG/2 ML Vial IVP PRN (17:36)
[2020-08-13] MEDS: Sodium Chloride 0.9% 1,000 ML IV SCH (17:41)
[2020-08-14] MEDS: CEFAZOLIN 2 GM in Premix Bag 1 BAG IVPB SCH ×2 (00:13→07:37)
[2020-08-14] MEDS: Sodium Chloride 0.9% 1,000 ML IV SCH (00:13)
[2020-08-14] MEDS: Morphine 2 MG/ML VIAL SLOW IVP PRN ×2 (00:23→04:50)
[2020-08-14] MEDS: Ondansetron PF 4 MG/2 ML Vial IVP PRN (00:23)
[2020-08-14] MEDS: tiZANidine HCl 4 MG TAB PO PRN (00:29)
--- NOTE | 2020-08-14 05:35 | OP ---
DATE OF PROCEDURE: 08/13/2020 CLAY WORKER: Naye Joseph PA-C PREPROCEDURE DIAGNOSIS: Neck and upper extremity pain with cervical radiculopathy and stenosis with disk extrusion. POSTPROCEDURE DIAGNOSIS: Neck and upper extremity pain with cervical radiculopathy and stenosis with disk extrusion. PROCEDURES PERFORMED: 1. Anterior C4-C5 and C5-C6 diskectomies for decompression of spinal cord and nerve roots. 2. Placement of interbody spacers, packed with graft, C4-C5 and C5-C6, graft separate from plate. 3. Arthrodesis, C4-C5 and C5-C6. 4. Anterior cervical plate and screw fixation, C4, C5, C6. 5. Use of operative microscope for microdissection. DESCRIPTION OF PROCEDURE: After informed consent was obtained from the patient, the patient was brought to the OR. Proper patient, pause, and identification were carried out. She was placed under excellent general endotracheal anesthesia and positioned supine on the OR table. A right transverse crease was identified and a linear efrem was made in this region. This area was sterilely cleansed, prepared, and draped. Proper patient, pause, and identification were carried out. The wound was then opened with a combination of sharp, monopolar, and blunt dissection, proceeded lateral to the larynx, pharynx, then medial to the right carotid sheath. We identified the prevertebral layer of deep cervical fascia and longus colli muscles were swept laterally. Localization film confirmed our area of interest. We then performed anterior C4 and C5 distraction. Microscope was brought in for diskectomy and the diskectomy at C4-C5 was performed with excellent decompression of the common dural tube and C5 nerve roots. We then turned our attention to placement of interbody spacer in appropriate dimension at C4-C5. This was separate from the plate for arthrodesis initiation. We then did the same procedure at C5-C6 with diskectomy, placement of interbody spacer for arthrodesis, packed with graft, separate from the plate. The microscope was removed. Anterior cervical plate and screw fixation at C4, C5, and C6 then occurred. Copious irrigation occurred throughout as did maximizing hemostasis. The wound was then closed in anatomic layers over a drain. The patient emerged from anesthesia. Job ID: [id number]
[2020-08-14 07:26] VITALS: BP 122/79; TEMP 97.8
[2020-08-14] MEDS ORDERED: Montelukast Sodium 10 mg Tablet PO SCH (09:00)
[2020-08-14] MEDS ORDERED: LISDEXAMFETAMINE DIMESYLATE 40 MG PO SCH (09:00)
--- NOTE | 2020-08-15 03:04 | DIS ---
DATE OF ADMISSION: 08/13/2020 DATE OF DISCHARGE: 08/14/2020 DIAGNOSES: 1. Cervical stenosis. 2. Cervical radiculopathy. CONSULTS: None. PROCEDURE: C4-C6 anterior cervical diskectomies and fusion on August 13, 2020. HOSPITAL COURSE: Ms. Sy was admitted following the above procedure for postoperative pain control and monitoring. The patient reports doing well postoperatively. She does have some postoperative cervical pain going to the right shoulder; however, this is controlled with pain medications. Overall, she reports doing well. She has good movement and strength throughout her bilateral upper and lower extremities. She has been ambulating without difficulty. She denies significant hoarseness or dysphagia. She has been tolerating a tonsil diet without difficulty. She has been urinating without difficulty. Her drain output was 20 mL total, and the anterior cervical ARNAUD drain was removed without difficulty this morning. The patient is stable for discharge home. Postoperative restrictions and wound care were discussed. The patient was instructed to wear her [place] J cervical collar when out of bed, ambulating, and riding in the car. She was provided with appropriate postoperative pain medications and muscle relaxants. Our team will arrange for outpatient followup in the upcoming weeks for reevaluation and wound check. The patient will call the office sooner with any questions or concerns. Job ID: [id number]
== END 2020-08-14 10:57 | disposition home or self-care (01) ==
LOC: SDC 05:48 → T4-B 16:37 → SDC 08-14 10:57
PROVIDERS: ATTEND Surgery
PROC: 0RG20A0 Fusion of 2 or more Cervical Vertebral Joints with Interbody Fusion Device, Anterior Approach, Anterior Column, Open Approach (ICD-10-PCS; principal; 2020-08-13)
PROC: 0RT30ZZ Resection of Cervical Vertebral Disc, Open Approach (ICD-10-PCS; principal; 2020-08-13)
PROC: 0RG20K0 Fusion of 2 or more Cervical Vertebral Joints with Nonautologous Tissue Substitute, Anterior Approach, Anterior Column, Open Approach (ICD-10-PCS; principal; 2020-08-13)
DX: M48.02 Spinal stenosis, cervical region (principal); M50.021 Cervical disc disorder at C4-C5 level with myelopathy; M50.121 Cervical disc disorder at C4-C5 level with radiculopathy; Z79.899 Other long term (current) drug therapy
CPT/HCPCS: 76000; C1713; C1776; J0690; J1100; J1170; J1885; J2250; J2270; J2405; J2704; J3010; J3490

== ENCOUNTER 2020-09-10 09:50 | Outpatient (CLI) | payer BC ==
[~2020-09-10 09:50] MED LIST changes: +Iopamidol-370 76% 500 ML 1 ML ONE; -Lidocaine 1% PF 5 ML VIAL ONE; -PROPOFOL 200 MG/20 ML VIAL ONE
--- NOTE | 2020-09-10 11:03 | CT ---
CT OF THE CHEST, ABDOMEN AND PELVIS WITH IV CONTRAST INDICATION: 45-year-old female with malignant neoplasm of the anus COMPARISON: CT the abdomen and pelvis dated December 26, 2019 and a PET/CT dated September 21, 2019. PET/ CT comparison from January 02, 2020 was also reviewed. FINDINGS: CHEST: Lungs: The lungs are clear. Pleural space: No effusion. Mediastinum: The mild residual thymic tissue within the anterior mediastinum is stable. The 2.7 cm ri ght pericardial cyst is stable. No pathologically enlarged lymph nodes are evident. Axilla: No pathologically enlarged lymph nodes. ABDOMEN: Liver: Small focus of fatty infiltration near the falciform ligament stable. No new focal hepatic les ion is identified. Gallbladder: Normal appearing. Pancreas: Normal. Adrenal glands: Normal. Spleen: Normal. Kidneys and ureters: Normal. No hydronephrosis. Vasculature: There are mild vascular calcifications seen involving the visualized vasculature. Lymph nodes:No lymphadenopathy. Free fluid in abdomen:No free fluid is evident. PELVIS: Small and large bowel: No overt soft tissue mass is seen involving the lower rectum and anus. The pre sacral space is normal appearing. The unopacified large bowel is within normal limits. Small bowel is within normal limits. Appendix:Normal Bladder: Normal. Rectal and perirectal soft tissues:Normal. Reproductive structures: Normal. Free fluid in pelvis: No free fluid is evident. Lymphadenopathy pelvis: No lymphadenopathy is evident. Osseous structures: No acute osseous abnormality. No destructive osteolytic or osteoblastic lesion i s identified. There is scattered degenerative and osteoarthritic changes. Soft tissues:Normal. IMPRESSION: 1. No evidence to suggest recurrent disease or metastatic disease.
== END 2020-09-10 09:51 | disposition home or self-care (01) ==
LOC: BICCT 09:50
PROVIDERS: ATTEND Internal Medicine Hematology & Oncology
DX: C21.1 Malignant neoplasm of anal canal (principal)
CPT/HCPCS: 71260; 74177; Q9967

== ENCOUNTER 2020-09-16 11:55 | Outpatient (CLI) | payer BC ==
--- NOTE | 2020-09-16 12:23 | RAD ---
EXAM: XR Cerv Sp Ap Lat STANDARD PROVIDED CLINICAL HISTORY: Cervical spinal stenosis. History of prior cervical spine surgery. COMPARISON: 07/19/2019 FINDINGS: Interval postoperative changes related to anterior cervical fusion with an anterior plate and screws transfixing the C4-5 and C5-6 levels. Intradiscal prostheses are present at these levels. No hardware complication is seen. There is straightening of the normal cervical lordotic curvature. Mild degenerative changes are present at the C6-7 level which have developed in the interim with mild loss of intervertebral disc height and osteophyte formation. C1 to the cervicothoracic junction is se en on the lateral view. No fracture or subluxation is identified. Prevertebral soft tissues have a normal appearance. IMPRESSION: Postoperative and degenerative changes cervical spine.
== END 2020-09-16 11:56 | disposition home or self-care (01) ==
LOC: BICRAD 11:55
PROVIDERS: ATTEND Surgery
DX: M50.10 Cervical disc disorder with radiculopathy, unspecified cervical region (principal); M48.02 Spinal stenosis, cervical region; Z98.1 Arthrodesis status
CPT/HCPCS: 72040

== ENCOUNTER 2021-03-07 11:16 | Day surgery (SDC) | payer BC ==
[2021-03-06 09:20] VITALS: BMI 28.1
[2021-03-07] MEDS ORDERED: Fleet Enema 133 ML BOT PR SCH (12:45)
[2021-03-07] MEDS ORDERED: PROPOFOL 200 MG/20 ML VIAL ONE (13:36)
[2021-03-07] MEDS ORDERED: Lidocaine 1% PF 5 ML VIAL ONE (13:36)
[2021-03-07 15:18] LABS: #Eosinphils 0.1 thou/uL (0.0-0.7); #Lymphocytes 1.2 thou/uL (1.20-3.40); #Monocytes 0.3 thou/uL (0.11-0.59); #Neutrophils 3.6 thou/uL (1.40-6.50); %Basophils 0.8 % (0.0-1.0); %Lymphocytes 23.8 % (21.0-51.0); %Monocytes 6.3 % (0.0-10.0); %Neutrophils 68.1 % (42.0-75.0); Hemoglobin 13.9 g/dL (12.0-16.0); Mean Corpuscular Hemoglobin 32.6 pg (27.0-31.0); Mean Corpuscular Volume 95.9 fL (78.0-98.0); Mean Platelet Volume 7.7 fL (7.4-10.4); Platelet Count 235 thou/uL (130-400); RBC Distribution Width 12.2 % (11.5-14.5); Red Blood Cell (RBC) Count 4.28 mill/uL (4.20-5.40); White Blood Cell (WBC) Count 5.2 thou/uL (4.8-10.8)
[2021-03-07 15:39] LABS: ALT (SGPT) 12 U/L (8-55); AST (SGOT) 13 U/L (5-34); Albumin 4.3 g/dL (3.5-5.0); Alkaline Phosphatase 89 U/L (40-110); Anion Gap 13 mmol/L (10-20); BUN (Urea Nitrogen) 11 mg/dL (7.0-18.7); Bilirubin, Total 0.5 mg/dL (0.2-1.2); Calc. Creatinine Clearance 109 mL/min (70-130); Calcium 9.2 mg/dL (7.8-10.44); Carbon Dioxide 25 mmol/L (22-29); Chloride 105 mmol/L (98-107); Globulin 2.7 g/dL (2.4-3.5); Glucose 90 mg/dL (70-105); Potassium 3.7 mmol/L (3.5-5.1); Sodium 139 mmol/L (136-145)
== END 2021-03-07 15:30 | disposition home or self-care (01) ==
LOC: SDC 11:16
PROVIDERS: ATTEND Internal Medicine Gastroenterology
PROC: 0DBE8ZX Excision of Large Intestine, Via Natural or Artificial Opening Endoscopic, Diagnostic (ICD-10-PCS; principal; 2021-03-07)
DX: Z12.11 Encounter for screening for malignant neoplasm of colon (principal); K52.9 Noninfective gastroenteritis and colitis, unspecified; L53.8 Other specified erythematous conditions; Z85.038 Personal history of other malignant neoplasm of large intestine
CPT/HCPCS: 36415; 80053; 85025; 86140; 88305; J2704

== ENCOUNTER 2021-03-18 08:49 | Outpatient (CLI) | payer BC ==
[2021-03-18] MEDS ORDERED: Iopamidol-370 76% 500 ML 1 ML ONE (09:43)
== END 2021-03-18 08:50 | disposition home or self-care (01) ==
LOC: BICCT 08:49
PROVIDERS: ATTEND Internal Medicine Hematology & Oncology
DX: C21.1 Malignant neoplasm of anal canal (principal)
CPT/HCPCS: 74177; Q9967

== ENCOUNTER 2021-06-30 09:22 | Outpatient (CLI) | payer BC ==
[2021-06-30 21:37] LABS: SARS-CoV-2 PCR by NAA Not Detected (NotDetected)
== END 2021-06-30 09:23 | disposition home or self-care (01) ==
LOC: LABBT 09:22
PROVIDERS: ATTEND Internal Medicine Gastroenterology
DX: Z01.812 Encounter for preprocedural laboratory examination (principal); C44.520 Squamous cell carcinoma of anal skin; Z53.9 Procedure and treatment not carried out, unspecified reason; Z20.822 Contact with and (suspected) exposure to COVID-19
CPT/HCPCS: U0003; U0005

== ENCOUNTER 2021-07-03 11:24 | Day surgery (SDC) | payer BC ==
[2021-07-02 11:46] VITALS: BMI 28.1
[2021-07-03] MEDS ORDERED: Lidocaine 1% PF 5 ML VIAL ONE (12:11)
[2021-07-03] MEDS ORDERED: PROPOFOL 200 MG/20 ML VIAL ONE (12:11)
== END 2021-07-03 13:18 | disposition home or self-care (01) ==
LOC: SDC 11:24
PROVIDERS: ATTEND Internal Medicine Gastroenterology
PROC: 0DJD8ZZ Inspection of Lower Intestinal Tract, Via Natural or Artificial Opening Endoscopic (ICD-10-PCS; principal; 2021-07-03)
DX: K59.09 Other constipation (principal); Q43.8 Other specified congenital malformations of intestine; Z85.048 Personal history of other malignant neoplasm of rectum, rectosigmoid junction, and anus; Z92.21 Personal history of antineoplastic chemotherapy; Z92.3 Personal history of irradiation; Z79.899 Other long term (current) drug therapy
CPT/HCPCS: J2704

== ENCOUNTER 2021-08-28 08:09 | Outpatient (CLI) | payer BC | END 2021-08-28 08:10 | disposition home or self-care (01) | LOC: BICMAMMO 08:09 | PROVIDERS: ATTEND Family Medicine | DX: Z12.31 Encounter for screening mammogram for malignant neoplasm of breast (principal); Z85.89 Personal history of malignant neoplasm of other organs and systems | CPT/HCPCS: 77063; 77067 ==

== ENCOUNTER 2022-03-23 07:21 | Outpatient (CLI) | payer BC | END 2022-03-23 07:22 | disposition home or self-care (01) | LOC: BICCT 07:21 | PROVIDERS: ATTEND Internal Medicine Hematology & Oncology | DX: C21.1 Malignant neoplasm of anal canal (principal) | CPT/HCPCS: 74177 ==

== ENCOUNTER 2022-09-01 07:59 | Day surgery (SDC) | payer BC ==
[2022-08-31 10:51] VITALS: BMI 30.5
[2022-09-01] MEDS ORDERED: PROPOFOL 200 MG/20 ML VIAL ONE (10:30)
== END 2022-09-01 11:31 | disposition home or self-care (01) ==
LOC: SDC 07:59
PROVIDERS: ATTEND Internal Medicine Gastroenterology
PROC: 0DJD8ZZ Inspection of Lower Intestinal Tract, Via Natural or Artificial Opening Endoscopic (ICD-10-PCS; principal; 2022-09-01)
DX: Z08 Encounter for follow-up examination after completed treatment for malignant neoplasm (principal); K59.09 Other constipation; Z85.048 Personal history of other malignant neoplasm of rectum, rectosigmoid junction, and anus; Z79.899 Other long term (current) drug therapy
CPT/HCPCS: J2704

== ENCOUNTER 2022-10-09 08:30 | Outpatient (CLI) | payer BC | END 2022-10-09 08:31 | disposition home or self-care (01) | LOC: BICMAMMO 08:30 | PROVIDERS: ATTEND Family Medicine | DX: Z12.31 Encounter for screening mammogram for malignant neoplasm of breast (principal); Z85.89 Personal history of malignant neoplasm of other organs and systems | CPT/HCPCS: 77063; 77067 ==

== ENCOUNTER 2025-08-21 10:21 | Outpatient (CLI) | payer BC | END 2025-08-21 10:22 | disposition home or self-care (01) | LOC: BICRAD 10:21 | PROVIDERS: ATTEND Family Medicine | DX: M47.22 Other spondylosis with radiculopathy, cervical region (principal); Z96.89 Presence of other specified functional implants | CPT/HCPCS: 72040 ==